=== PATIENT | female | born 1980 | race Caucasian/White ===

== ENCOUNTER → 2017-06-22 | Outpatient (REF) | LOC: WSOH 16:30 | DX: Z02.89 Encounter for other administrative examinations (principal) ==

== ENCOUNTER 2018-12-06 20:09 | Inpatient (IN) | payer BC ==
[2018-12-06] VITALS (12 sets, daily range): BP systolic 106–153; BP diastolic 73–94; PULSE 76–127; TEMP 97.8
[~2018-12-06] VITALS: Ht 167.6 cm; Wt 91.4 kg
--- NOTE | 2018-12-06 20:15 | NUR ---
at 39 weeks and 3 days arrives to unit with complaint of contractions every 3 minutes started around 1900. Pt reports good movement, denies loss of fluid or vaginal bleeding. Pt denies headaches, blurry vision, or RUQ pain. Pt oriented to room. Clean gown on. Bed in low and locked position, and call light within reach. SVE /-2. Roles on unit and notified, verbal orders to admit. Pt desires epidural. Roselia Clayton CRNA notified. Plan of care reviewed with patient and spouse. Admission assessment started.
--- NOTE | 2018-12-06 20:35 | NUR ---
18 G IV started in left forearm after 1 failed attempt on r forearm. Unable to obtain labs off of IV start. Lab notified. Lactated Ringers infusing to gravity.
--- NOTE | 2018-12-06 20:39 | NUR ---
2038 - HILLARY Smith at bedside. Epidural procedure, risks, and benefits reviewed, pt verbalized understanding. Pt repositioned to sitting on edge of bed. 2047 - Single shot by HILLARY Smith. Pt denies any adverse reactions. 2050 - Pt repositioned to right side lying position. 2054 - Test dose by HILLARY Smith. No adverse reactions
--- NOTE | 2018-12-06 21:09 | NUR ---
Roles at bedside to review plan of care and perform SVE and AROM. SVE /-1. AROM performed, moderate amount of thick meconium fluid noted on rupture, nursery notified. Pericare provided. Pt repositioned back to R side.
[2018-12-06] MEDS ORDERED: PRENATAL MVI (21:18)
[2018-12-06 21:32] LABS: BASO % 0.3 % (0.0-2.0); EOS # 0.1 (0.0-0.7); EOS % 0.4 % (0-4.0); GRAN # 8.5 (1.4-6.5); GRAN % 70.8 % (42.2-75.2); HEMOGLOBIN 12.4 g/dl (12.5-16.0); LYMPH # 2.3 (1.2-3.4); LYMPH % 19.3 % (20.0-51.0); MEAN CELL VOLUME 86 fl (80.0-100.0); MEAN CORPUSCULAR HEMOGLOBIN 29 pg (27.0-31.0); MEAN CORPUSCULAR HGB CONC 34 g/dl (33.0-37.0); MEAN PLATELET VOLUME 11.1 fl (7.4-10.4); MONO % 8.3 % (1.7-9.3); PLATELET COUNT 242 K/mm3 (130-400); RED BLOOD COUNT 4.28 M/mm3 (4.10-5.30); REDCELL DISTRIBUTION WIDTH-CV 12.8 % (11.5-14.5)
[2018-12-06 21:33] LABS: HEMATOCRIT 36.7 % (37.0-47.0)
--- NOTE | 2018-12-06 22:24 | NUR ---
2158 - Pt called out stating she is starting to feel a lot of rectal pressure. HILLARY Smith at bedside at this time to redose epidural. SVE /0. Dr. Juan on unit and notified. Nursery updated. 2204 - Room set up for delivery. Pt positioned into footplates. Dr. Juan gowned and gloved at perineum. Pt educated on pushing techniques. Initial push at this time. 0 - Pt continues to push well with contractions. 222 - Pt continues to push well with contractions. Small crown when pushing. Variable and late deceleration noted after pushing. 2223 - Pt pushed to deliver a viable infant girl. Infant placed on mothers abdomen. Cord clamped and cut by Dr. Juan. Care of infant assumed to nursery WANDA Mann. Cord blood obtained. Cord gasses obtained. 2233 - Spontaneous delivery of intact placenta. Pitocin infusing at 333 mL/hr per protocol. Fundal massage started. Fundus firm and at umbilicus. Perineum intact per Dr. Juan. Pericare provided. Clean chux pad under patient. Pt positioned to high fowlers. recovery started.
--- NOTE | 2018-12-06 22:30 | NUR ---
Peter alston by Dr. uJan to drain bladder.
[2018-12-07] VITALS (8 sets, daily range): BP systolic 106–127; BP diastolic 62–78; PULSE 80–100; TEMP 97.7–98.2
--- NOTE | 2018-12-07 01:45 | NUR ---
Pt able to lift and hold legs off of bed for 5 seconds. Pt positioned to edge of bed. Epidural catheter removed. Tip intact, pt tolerated well. Pt able to ambulate to bathroom with standby assist. Pericare explained and provided. Pt only able to void very little. Clean gown on. Clean panties and pad applied. Pt transferred to room 208 by wheelchair with belongings.
--- NOTE | 2018-12-07 08:57 | NUR ---
Initial visit; Parents thanked [employer] for offering congratulations for the of their daughter. G[employer]icker thanked them for choosing [facility].
--- NOTE | 2018-12-07 11:25 | NUR ---
Request pain medication. Percocet 5/325 mg. one given per request and as ordered.
[2018-12-08 08:00] VITALS: BP 125/76; PULSE 80; TEMP 97.7
[2018-12-08] MEDS ORDERED: IBU600 MG PO (12:05)
[2018-12-08] MEDS ORDERED: PERCOCET 325 MG1 TA2 PO (12:32)
== END 2018-12-08 12:45 | disposition home or self-care (01) | DRG 807 ==
LOC: LDRO 20:09 → OB 20:25 → LDR 20:25 → OB 12-07 02:00
PROVIDERS: Obstetrics & Gynecology; ADMIT Obstetrics & Gynecology
PROC: 10E0XZZ Delivery of Products of Conception, External Approach (ICD-10-PCS; principal; 2018-12-06)
DX: O77.0 Labor and delivery complicated by meconium in amniotic fluid (principal); Z37.0 Single live birth; Z3A.39 39 weeks gestation of pregnancy
CPT/HCPCS: J2590; J2795; J7120

== ENCOUNTER → 2021-10-21 | Outpatient (CLI) | payer BC ==
[~2021-10-21] MED LIST: IBU600 MG PO; PERCOCET 325 MG1 TA2 PO; PRENATAL MVI
== END ==
LOC: COL.RAD 10-06 08:15
DX: S46.011A Strain of muscle(s) and tendon(s) of the rotator cuff of right shoulder, initial encounter (principal); S46.111A Strain of muscle, fascia and tendon of long head of biceps, right arm, initial encounter; M19.011 Primary osteoarthritis, right shoulder; M67.813 Other specified disorders of tendon, right shoulder